=== PATIENT | female | born 1965 | race Caucasian/White ===

== ENCOUNTER → 2023-12-19 13:58 | Outpatient (REF) | payer BC, SELFPAY | LOC: HWRAD 13:58 | PROVIDERS: ATTENDING PHYSICIAN Urology; FAMILY PHYSICIAN Family Medicine; REFERRING PHYSICIAN Urology | DX: N39.0 Urinary tract infection, site not specified (principal); N31.9 Neuromuscular dysfunction of bladder, unspecified; N39.41 Urge incontinence; N32.81 Overactive bladder | CPT/HCPCS: 76770 ==

== ENCOUNTER → 2024-07-15 11:41 | Outpatient (REF) | payer BC, SELFPAY | LOC: HWRAD 11:41 | PROVIDERS: ATTENDING PHYSICIAN Nurse Practitioner Adult Health | DX: M89.319 Hypertrophy of bone, unspecified shoulder (principal); M19.011 Primary osteoarthritis, right shoulder; M25.611 Stiffness of right shoulder, not elsewhere classified | CPT/HCPCS: 73000; 73030 ==

== ENCOUNTER → 2024-10-22 15:55 | Outpatient (REF) | payer BC, SELFPAY | LOC: HWWDC 15:55 | PROVIDERS: ATTENDING PHYSICIAN Obstetrics & Gynecology Gynecology; FAMILY PHYSICIAN Family Medicine | DX: Z12.31 Encounter for screening mammogram for malignant neoplasm of breast (principal) | CPT/HCPCS: 77063; 77067 ==

== ENCOUNTER → 2025-06-09 12:23 | Outpatient (REF) | payer BC, SELFPAY | LOC: HWRAD 12:23 | PROVIDERS: ATTENDING PHYSICIAN Urology; FAMILY PHYSICIAN Family Medicine | DX: N39.0 Urinary tract infection, site not specified (principal); N31.9 Neuromuscular dysfunction of bladder, unspecified | CPT/HCPCS: 76770 ==